=== PATIENT | female | born 1955 | race Caucasian/White ===

== ENCOUNTER → 2017-01-20 | Outpatient (CLI) | payer MEDICARE, MEDICAID ==
[2017-01-20 16:12] LABS: BUN 20 mg/dL (7-18)
[2017-01-20 16:13] LABS: GFR (ESTIMATED) 56 ML/MIN (59-)
[2017-01-21 12:37] LABS: Creatinine, Urine 78.8 mg/dL (Not Estab.); Microalbumin, Urine 55.8 ug/mL (Not Estab.)
== END ==
LOC: CARL-LAB 08:27
PROVIDERS: Nurse Practitioner
DX: E03.8 Other specified hypothyroidism (principal); E11.40 Type 2 diabetes mellitus with diabetic neuropathy, unspecified